=== PATIENT | male | born 1945 | race Caucasian/White ===

== ENCOUNTER 2019-05-22 16:29 | Emergency (ER) | payer MEDICARE ==
[~2019-05-22] VITALS: Ht 182.9 cm; Wt 80.9 kg
[2019-05-22 17:56] VITALS: BP 137/65
== END 2019-05-22 18:01 | disposition home or self-care (01) ==
LOC: ER 16:30
DX: S91.331A Puncture wound without foreign body, right foot, initial encounter (principal); Z98.890 Other specified postprocedural states; W26.0XXA Contact with knife, initial encounter; Y93.89 Activity, other specified; Y92.89 Other specified places as the place of occurrence of the external cause; Y99.8 Other external cause status
CPT/HCPCS: 99284